=== PATIENT | female | born 1985 | race Asian ===

== ENCOUNTER 2021-07-28 14:19 | Emergency (ER) | payer OTHER ==
[~2021-07-28] VITALS: Ht 152.4 cm; Wt 62.6 kg
[2021-07-28] MEDS ORDERED: CHILDREN'S5 MG/5 M3 PO (14:28)
[2021-07-28] MEDS ORDERED: FLONASE ALLERG9.9 ML NASAL (14:28)
[2021-07-28 15:38] LABS: BASOPHILS 0.5 % (0.0-2.0); EOSINOPHILS 1.4 % (0.0-3.0); HEMATOCRIT 40.7 % (37.0-47.0); HEMOGLOBIN 13.7 gm/dL (12.0-15.0); LYMPHOCYTES 25.6 % (24.0-44.0); MCH 30.1 pg (26.0-34.0); MCHC 33.7 g/dL (28.0-37.0); MCV 89.4 fL (80.0-100.0); MONOCYTES 5.3 % (1.0-8.0); PLATELET COUNT 277 thou/uL (150-400); POLYS 67.2 % (36.0-66.0); RBC 4.55 mil/uL (4.20-5.00); RDW 12.2 % (10.5-14.5)
[2021-07-28 15:47] LABS: CALCIUM 8.8 mg/dL (8.5-10.1); CREATININE 0.7 mg/dL (0.6-1.0); POTASSIUM 3.9 mmol/L (3.5-5.1)
[2021-07-28 15:52] LABS: URINE BILIRUBIN NEGATIVE (Negative); URINE BLOOD TRACE (Negative); URINE CLARITY CLEAR; URINE COLOR YELLOW; URINE GLUCOSE-RANDOM* NEGATIVE (Negative); URINE KETONES NEGATIVE (Negative); URINE LEUKOCYTES-REFLEX NEGATIVE (Negative); URINE NITRITE-REFLEX NEGATIVE (Negative); URINE PROTEIN (DIPSTICK) NEGATIVE (Negative); URINE UROBILINOGEN 0.2 E.U./dl (0.2-1.0)
[2021-07-28 15:52] LABS: ALBUMIN 4.1 g/dL (3.4-5.0); TOTAL BILIRUBIN 0.4 mg/dL (0.2-1.0); TOTAL PROTEIN 8.1 g/dL (6.4-8.2)
[2021-07-28] MEDS ORDERED: LEVSIN0.125 MG PO (17:40)
[2021-07-28] MEDS ORDERED: NEXIUM40 MG PO (17:40)
[2021-07-28] MEDS ORDERED: ZOFRAN ODT4 MG PO (17:40)
[2021-07-28 18:14] VITALS: BP 111/70
== END 2021-07-28 18:14 | disposition home or self-care (01) ==
LOC: ER 14:19
PROVIDERS: Emergency Medicine
DX: R10.11 Right upper quadrant pain (principal); Z79.899 Other long term (current) drug therapy